=== PATIENT | female | born 1980 | race Caucasian/White ===

== ENCOUNTER 2017-01-09 05:44 | Day surgery (SDC) | payer BC, OTHER ==
[2017-01-08 11:22] VITALS: BMI 44.0
[~2017-01-09] VITALS: Ht 157.5 cm; Wt 106.6 kg
[2017-01-09] MEDS ORDERED: MOXIFLOXACIN 0.5% 3 ML OPH LEFT EYE SCH (06:00)
[2017-01-09] MEDS ORDERED: TETRACAINE 0.5% 4 ML OPH LEFT EYE SCH (06:00)
[2017-01-09] MEDS ORDERED: LACTATED RINGER'S 1,000 ML IV SCH ×2 (06:00→07:24)
[2017-01-09] MEDS ORDERED: TETRACAINE 0.5% 4 ML OPH BOTH EYES ONE (06:00)
[2017-01-09] MEDS ORDERED: LIDOCAINE 3.5% GEL TUBE OPER ONE ×2 (06:00→07:30)
[2017-01-09] MEDS ORDERED: DICLOFENAC 0.1% 2.5 ML OPH LEFT EYE SCH (06:00)
[2017-01-09] MEDS ORDERED: PHENYLephrine 10% 5 ML OPH ONE (06:40)
[2017-01-09] MEDS ORDERED: TOBRAMYCIN/DEXAMETH 3.5 GM OPH OINT ONE (06:40)
[2017-01-09] MEDS ORDERED: TETRACAINE 0.5% 4 ML OPH ONE (06:40)
[2017-01-09] MEDS ORDERED: LIDOCAINE 2%/EPI 30 ML INJ ONE (06:41)
[2017-01-09 06:43] VITALS: Ht 157.5 cm; Wt 106.6 kg
[2017-01-09 06:44] VITALS: BP 113/76; PULSE 88; RESP 16
[2017-01-09] MEDS ORDERED: BALANCED SALT SOLN 15 ML OPH IRRIG ONE (07:00)
[2017-01-09] MEDS ORDERED: PHENYLephrine 10% 5 ML OPH LEFT EYE ONE (07:15)
[2017-01-09] MEDS ORDERED: LIDOCAINE 2%/EPI MPF (SDV) 20 ML VIAL INJ ONE (07:15)
--- NOTE | 2017-01-09 07:23 | HPN ---
Date/Time of Note Date/Time of Note DATE: 01/09/17 TIME: 07:23 Interval H&P Admission Note Pt. seen H&P reviewed: No system changes SANTIAGO BAKER D.O. Jan 09, 2017 07:23
[2017-01-09] MEDS ORDERED: TETRACAINE 0.5% 4 ML OPH OPER SCH (07:30)
[2017-01-09] MEDS ORDERED: CYCLOPENTOLATE 1% 2 ML OPH OPER SCH (07:30)
[2017-01-09] MEDS ORDERED: MIDAZOLAM 1 MG/ML 2 ML INJ ONE (07:33)
[2017-01-09] MEDS ORDERED: FENTAnyl 50 MCG/ML VIAL ONE (07:33)
[2017-01-09] MEDS ORDERED: PROPOFOL 20 ML ONE (07:33)
[2017-01-09] MEDS ORDERED: TOBRAMYCIN/DEXAMETH 3.5 GM OPH OINT OPER ONE (07:50)
[2017-01-09 08:03] VITALS: BP 95/70; RESP 22
--- NOTE | 2017-01-09 08:09 | SIPON ---
Date/Time of Note Date/Time of Note DATE: 01/09/17 TIME: 08:04 Operative Report Preoperative Diagnosis Progressive peripheral pterigium,Lt eye Postoperative Diagnosis Same Operation/Procedure Performed Pterigium remova with transpositional allograft Surgeon: SANTIAGO BAKER D.O. Anesthesia Type: MAC Estimated Blood Loss: none Transfusion Required: no Specimens Pterigium tissue Grafts/Implants: none Complications: no SANTIAGO BAKER D.O. Jan 09, 2017 08:09
[2017-01-09 08:24] VITALS: BP 106/61; PULSE 80; RESP 22
[2017-01-09 08:29] VITALS: BP 108/63; PULSE 82; RESP 21
[2017-01-09] MEDS ORDERED: ONDANSETRON 4 MG INJ IV PRN (08:30)
[2017-01-09] MEDS ORDERED: EPHEDrine SULFATE 50 MG/5 ML SYG IV PRN (08:30)
[2017-01-09] MEDS ORDERED: FENTAnyl 50 MCG/ML VIAL IV PRN ×3 (08:30)
[2017-01-09] MEDS ORDERED: hydrALAzine 20 MG INJ IV PRN (08:30)
[2017-01-09] MEDS ORDERED: OXYCODONE/ACETAMINOPHEN (5/325) TAB PO PRN ×2 (08:30)
[2017-01-09] MEDS ORDERED: DIPHENHYDRAMINE 50 MG INJ IV PRN (08:30)
[2017-01-09] MEDS ORDERED: MEPERIDINE 25 MG INJ IV PRN (08:30)
[2017-01-09] MEDS ORDERED: MIDAZOLAM 1 MG/ML 2 ML INJ IV PRN (08:30)
[2017-01-09] MEDS ORDERED: METOCLOPRAMIDE 10 MG INJ IV PRN (08:30)
[2017-01-09] MEDS ORDERED: LABETALOL HCL 20MG INJ IV PRN (08:30)
[2017-01-09 09:04] VITALS: BP 111/61; PULSE 88; RESP 18
--- NOTE | 2017-01-09 10:02 | RADRPT ---
PROCEDURE: XR Chest. CLINICAL INDICATION: Preoperative TECHNIQUE: Single frontal view of the chest was obtained COMPARISON: None FINDINGS: The heart and mediastinum are within normal limits. The lungs are clear. There is no pleural effusion or pneumothorax. RPTAT: AA IMPRESSION: No acute disease. .Jer Stovall MD, Date Time Electronically viewed and signed by .Jer Stovall MD, on 01/09/2017 10:01 .S/
--- NOTE | 2017-01-10 05:32 | OPR ---
DATE OF OPERATION: 01/09/2017 PREOPERATIVE DIAGNOSIS: Progressive peripheral pterygium, left eye. POSTOPERATIVE DIAGNOSIS: Progressive peripheral pterygium, left eye. SURGEON: Dr. Carleen Pandya. ANESTHESIOLOGIST: Dr. Laird. ANESTHESIA: MAC. CONSENT: Patient was explained all possible outcomes of her condition and given different options of treatment. Operation explained, all possible complications, which include, but are not limited to bleeding, infection, scar formation, and recurrence. The patient understood, signed consent. It can be found in her chart. OPERATIVE PROCEDURE: Patient was brought to the operating room in stable condition, placed on the operating table in supine position and her left eye was prepped for pterygium surgery in routine sterile technique. Then a retractor was placed in her left eye to keep her eyelid open, which was followed by injection of lidocaine 4 percent with epinephrine subconjunctivally in nasal are. Then the [place] scissors used to remove body and tail of the pterygium from underlying scleral tissue. Eventually a [place] knife was used to remove it from peripheral cornea. Hemostasis was achieved with handpiece cautery. Then conjunctival tissue was from underlying tissue in superior and inferior bulbar conjunctiva and 2 pieces covered bare scleral area and attached to each other with 8-0 Vicryl suture. Then Tobradex ointment was instilled and eyelid was covered with a patch. The patient was transferred to the recovery room in stable condition. Dictated By: Carleen Pandya DO /phi/alvin /Document#: [id number] LAURA
== END 2017-01-09 10:00 | disposition home or self-care (01) ==
LOC: SDS 05:44
PROVIDERS: ATTEND Ophthalmology
DX: H11.052 Peripheral pterygium, progressive, left eye (principal)
CPT/HCPCS: 65426; 71010; 88305; J2250; J3010; Z7512; Z7610